=== PATIENT | female | born 1975 | race Caucasian/White ===

== ENCOUNTER → 2018-12-14 | Outpatient (CLI) | payer BC ==
--- NOTE | 2018-12-14 16:29 | Diagnostic Imaging Report ---
INDICATION: Routine screening. COMPARISON: No prior mammograms are available for comparison. This a baseline mammogram. TECHNIQUE: 2D and 3D bilateral screening mammography was performed with CAD. FINDINGS: Scattered fibroglandular densities are identified bilaterally. Occasional benign calcifications are noted bilaterally. No mass or malignant appearing microcalcifications are seen. The axillae are unremarkable. IMPRESSION: No mammographic features suspicious for malignancy are identified. ACR BI-RADS Category 2: Benign findings. Result letter will be mailed to the patient. Note: At least 10% of breast cancer is not imaged by mammography. Dictated by: Dictated on workstation # [id number]
== END ==
LOC: RAD 10:11
PROVIDERS: ATTEND Nurse Practitioner
DX: Z12.31 Encounter for screening mammogram for malignant neoplasm of breast (principal); Z01.419 Encounter for gynecological examination (general) (routine) without abnormal findings; N92.0 Excessive and frequent menstruation with regular cycle
CPT/HCPCS: 77067

== ENCOUNTER → 2019-10-06 | Outpatient (CLI) | payer BC ==
--- NOTE | 2019-10-06 17:12 | Diagnostic Imaging Report ---
PROCEDURE: US Non-ob pelvis comp/trans. TECHNIQUE: Multiple realtime grayscale images were obtained of the pelvis in various projections transabdominally and endovaginally. Transabdominal imaging was also performed. INDICATION: Menorrhagia. COMPARISON: None Available FINDINGS: Transabdominal: The uterus and adnexa have a unremarkable transabdominal appearance. Transvaginal images were obtained for additional characterization. Transvaginal: The uterus is anteverted and measures 14.0 x 8.9 x 7.2 cm. A fibroid is visualized at the uterine fundus measuring 7.9 x 6.3 x 6.6 cm. The endometrial stripe is difficult to evaluate and measures approximately 0.5 cm in thickness. The right ovary is well visualized measuring 4.4 x 2.8 x 3.5 cm and demonstrating normal color Doppler flow. A small cyst is seen off the right ovary measuring 1.3 x 1.0 cm. The left ovary is not visualized due to overlying bowel gas. No adnexal masses are seen. No free fluid is seen in the pelvis. IMPRESSION: 1. Prominent fibroid at the uterine fundus. 2. Small cyst/follicle in the right ovary. No suspicious ovarian masses. Normal vascularity is seen in the right ovary. 3. Nonvisualization of the left ovary due to overlying bowel gas. No adnexal masses are identified. No free fluid. Dictated by: Dictated on workstation # [id number]
== END ==
LOC: RAD 13:38
PROVIDERS: ATTEND Nurse Practitioner
DX: N83.201 Unspecified ovarian cyst, right side (principal); D25.9 Leiomyoma of uterus, unspecified
CPT/HCPCS: 76830; 76856

== ENCOUNTER 2019-11-23 07:14 | Outpatient (RCR) | payer BC ==
[~2019-11-23] VITALS: Ht 168 cm; Wt 122.3 kg
[~2019-11-23 07:14] MED LIST: LEVO5TAB28 PO; MULT-141 PO
== END 2019-11-23 10:30 | disposition home or self-care (01) ==
LOC: PREOP 07:14
PROVIDERS: ATTEND Obstetrics & Gynecology
DX: Z01.818 Encounter for other preprocedural examination (principal); Z01.812 Encounter for preprocedural laboratory examination; N93.9 Abnormal uterine and vaginal bleeding, unspecified; D25.9 Leiomyoma of uterus, unspecified; N81.10 Cystocele, unspecified; Z20.828 Contact with and (suspected) exposure to other viral communicable diseases
CPT/HCPCS: 87635

== ENCOUNTER 2019-11-27 09:56 | Day surgery (SDC) | payer BC ==
[2019-11-27] VITALS (10 sets, daily range): BP systolic 126–156; BP diastolic 63–93
[~2019-11-27] VITALS: Ht 170.2 cm; Wt 122.3 kg
[2019-11-27] MEDS ORDERED: LACTATED RINGERS 1,000 ML IV SCH (10:11)
--- NOTE | 2019-11-27 10:11 | Progress Note-Pre Operative ---
Pre-Operative Progress Note H&P Reviewed The H&P was reviewed, patient examined and no changes noted. Date Seen by Provider: Nov 27, 2019 Time Seen by Provider: 10: Date H&P Reviewed: Nov 27, 2019 Time H&P Reviewed: :11 Pre-Operative Diagnosis: AUB, Fibroid uterus, Cystocele, Fam Hx Ovarian ca JON GREENE DO Nov 27, 2019 10:11
[2019-11-27] MEDS ORDERED: DOCUSATE SODIUM 100 MG (COLACE) CAP PO PRN (10:15)
[2019-11-27] MEDS ORDERED: CHLORASEPTIC LOZENGE MM PRN (10:15)
[2019-11-27] MEDS ORDERED: SIMETHICONE 80 MG (MYLICON) CHEW PO PRN (10:15)
[2019-11-27] MEDS ORDERED: ANTACID SUSP 30 ML UDC (MYLANTA) PO PRN (10:15)
[2019-11-27] MEDS ORDERED: KETOROLAC 30 MG/ML VIAL IV PRN (10:15)
[2019-11-27] MEDS ORDERED: ZOLPIDEM 5 MG (AMBIEN) TAB PO PRN (10:15)
--- NOTE | 2019-11-27 10:16 | Discharge Inst-Women's Service ---
Discharge Inst-Women's Serv Depart Medication/Instructions New, Converted or Re-Newed RX: RX on Chart Final Diagnosis POD 1 RATLH BSO w/ Ant Repair Problems Reviewed?: Yes Consults/Follow Up Additional Follow Up: Yes Orders/Referrals Dr. De Jesus in 7-10 days and in 8 weeks Activity Activity: Activity as Tolerated Driving Instructions: No Driving for 1 Week NO SMOKING: NO SMOKING Nothing Inside Vagina: No Douching, No [place], No Tampons Diet Discharge Diet: No Restrictions Symptoms to Report to : Bleeding Excessive, Pain Increased, Fever Over 101 Degrees F, Vaginal Bleeding Increase, Questions/Concerns For Any Problems or Questions: Contact Your Physician Skin/Wound Care Infection Signs and Symptoms: Increased Redness, Foul Odor of Wound, Increased Drainage, Skin Itchy or Has a Rash, Increased Swelling, Temperature Above 101 F Operative Area Clean and Dry: Keep Incision Clean/Dry Stitches/Jung/Dermabond: Dermabond, Care of Stitches Bathing Instructions: JON Schultz DO Nov 27, 2019 10:16
[2019-11-27] MEDS ORDERED: SIME80TA16 PO (10:19)
[2019-11-27] MEDS ORDERED: IBUP-844 PO (10:19)
[2019-11-27] MEDS ORDERED: HYDR-34 PO (10:19)
[2019-11-27] MEDS ORDERED: DCS100C PO (10:19)
[2019-11-27] MEDS ORDERED: DEXAMETHASONE 10 MG/ML (DECADRON) 1 ML VIAL ONE (10:29)
[2019-11-27] MEDS ORDERED: MIDAZOLAM 2 MG/2 ML (VERSED) VIAL ONE (10:29)
[2019-11-27] MEDS ORDERED: ROCURONIUM 10 MG/ML 5 ML SYRINGE IV ONE ×2 (10:29→13:49)
[2019-11-27] MEDS ORDERED: LIDOCAINE PF 2% 5 ML (XYLOCAINE) VIAL ONE (10:29)
[2019-11-27] MEDS ORDERED: proPOfol 200 MG/20 ML (DIPRIVAN) VIAL IV ONE (10:29)
[2019-11-27] MEDS ORDERED: fentaNYL INJECTION 100 MCG/2 ML AMP ONE (10:29)
[2019-11-27] MEDS ORDERED: ONDANSETRON 4 MG/2 ML (SDV) Z0FRAN ONE ×2 (10:32→14:23)
[2019-11-27] MEDS ORDERED: SEVOFLURANE (ULTANE) 15 ML INHAL SOLN ONE ×9 (10:32→13:31)
[2019-11-27] MEDS ORDERED: metroNIDAZOLE 500MG/100ML IVPB 100 ML ONE (10:41)
[2019-11-27] MEDS ORDERED: ceFAZolin 2 GM IV Premixed 50 ML ONE (10:41)
[2019-11-27] MEDS ORDERED: LACTATED RINGERS 1,000 ML IV ONE (10:50)
[2019-11-27] MEDS ORDERED: ceFAZolin 2 GM IV Premixed 50 ML IV ONE (11:00)
[2019-11-27] MEDS ORDERED: metroNIDAZOLE 500MG/100ML IVPB 100 ML IV ONE (11:00)
--- OUTSIDE RECORDS SUMMARY | 2019-11-27 11:49 | XMS REPORT | Continuity of Care Document ---
Demographics Preferred Language Unknown Marital Status Unknown Yazidi Affiliation Unknown Race Unknown Ethnic Group Unknown Author Organization Unknown Address Unknown Phone Unavailable Allergies Active Description Code Type Severity Reaction Onset Reported/Identified Relationship to Patient Clinical Status Yes egg [id number] Drug Allergy Unknown N/A 11/20/2019 Yes Influenza Virus Vaccines [id number] Drug Allergy Unknown N/A 11/20/2019 Medications There is no data. 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 12/16/2018 [employer] [employer] MANAGER Ot N92.0 EXCESSIVE AND FREQUENT MENSTRUATION WITH 12/16/2018 [employer] [facility] MANAGER Ot Z01.4 19 ENCNTR FOR TICKET SELLER EXAM (GENERAL) (ROUTINE) 12/16/2018 QUICK CUONG W [employer] C[employer] MANAGER Ot Z12.3 1 ENCNTR SCREEN MAMMOGRAM FOR MALIGNANT NE 12/29/2018 KATY [facility]ONG [facility] [employer] MANAGER Ot N92.0 EXCESSIVE AND FREQUENT MENSTRUATION WITH 12/29/2018 [facility] [employer] MANAGER Ot Z01.4 19 ENCNTR FOR TICKET SELLER EXAM (GENERAL) (ROUTINE) 12/29/2018 KATY CUONG W [employer]IST[employer] C[employer] MANAGER Ot Z12.3 1 ENCNTR SCREEN MAMMOGRAM FOR MALIGNANT NE 05/22/2019 [employer] [employer] MANAGER Ot N92.0 EXCESSIVE AND FREQUENT MENSTRUATION WITH 05/22/2019 [employer] [employer] MANAGER Ot Z01.4 19 ENCNTR FOR TICKET SELLER EXAM (GENERAL) (ROUTINE) 05/22/2019 [employer] [employer] MANAGER Ot Z12.3 1 ENCNTR SCREEN MAMMOGRAM FOR MALIGNANT NE 10/10/2019 [employer] [facility] MANA[employer] Ot D25.9 LEIOMYOMA OF UTERUS, UNSPECIFIED 10/10/2019 [employer] [facility] [employer] MANAGER Ot N83.2 01 UNSPECIFIED OVARIAN CYST, RIGHT SIDE 11/02/2019 W Z00.01 Enc ounter for general adult medical examination with abnormal findings Michelle Arzola Procedures There is no data. Results Test Result Range Complete blood count (CBC) with automate d white blood cell (WBC) differential - 11/27/19 10:36 Blood leukocytes automated count (number/volume) 7.5 10*3/uL 4.3-11.0 Blood erythrocytes automated count (number/volume) 4.57 10*6/uL 4.35-5.85 Venous blood hemoglobin measurement (mass/volume) 13.4 g/dL 11.5-16.0 Blood hematocrit (volume fraction) 39 % 35-52 Automated erythrocyte mean corpuscular volume 86 [ foz_us] 80-99 Automated erythrocyte mean corpuscular h emoglobin (mass per erythrocyte) 29 pg 25-34 Automated erythrocyte mean corpuscular h emoglobin concentration measurement (mass/volume) 34 g/dL 32-36 Automated erythrocyte distribution width ratio 13. 6 % 10.0- 14.5 Automated blood platelet count (count/volume) 117 10*3/uL 130-400 Automated blood platelet mean volume measurement 10.4 [foz_us] 7.4-10.4 Automated blood neutrophils/100 leukocytes 70 % 42-75 Automated blood lymphocytes/100 leukocytes 23 % 12-44 Blood monocytes/100 leukocytes 6 % 0-12 Automated blood eosinophils/100 leukocytes 1 % 0-10 Automated blood basophils/100 leukocytes 0 % 0-10 Blood neutrophils automated count (number/volume) 5.2 10*3 1.8-7.8 Blood lymphocytes automated count (number/volume) 1.7 10*3 1.0-4.0 Blood monocytes automated count (number/volume) 0. 5 10*3 0.0-1.0 Automated eosinophil count 0.1 10*3/uL 0 .0-0.3 Automated blood basophil count (count/volume) 0.0 10*3/uL 0.0-0.1 Serum or plasma choriogonadotropin (preg patrick test) detection - 11/27/19 10:36 Serum or plasma choriogonadotropin ( test) de tection NEGATIVE NEGATIVE Comprehensive metabolic panel - 11/27/19 11:08 Serum or plasma sodium measurement (moles/volume) 139 mmol/L 135-145 Serum or plasma potassium measurement (moles/volume) 3.8 mmol/L 3.6-5.0 Serum or plasma chloride measurement (moles/volume) 110 mmol/L 98-107 Serum or plasma calcium measurement (mass/volume) 8.3 mg/dL 8.5-10.1 Serum or plasma albumin measurement (mass/volume) 3.6 g/dL 3.2-4.5 CALCIUM CORRECTED 8.6 mg/dL 8.5-10.1 Encounters ACCT No. Visit Date/Time Discharge Status Pt. Type Provider Facility Loc./Unit Complaint [id number] 08/13/2018 09:42:00 Document Registration [id number] 10/16/2019 14:19:42 10/16/2019 23:59:5 9 CLS Outpatient [id number] 11/23/2019 07:14:00 020 10:30:00 DIS Outpatient JON GREENE DO [facility] PREOP ROBOTIC HYSTERECTOMY;P OSSIBLE REPAIRS [id number] 10/06/2019 13:38:00 020 23:59:59 CLS Outpatient CUONG BURNS [facility] RAD DUB [id number] 12/14/2018 10:11:00 019 23:59:59 CLS Outpatient CUONG BURNS [facility] RAD SCREENING [id number] 07/07/2013 15:38:00 014 23:59:59 CLS Outpatient [id number] 11/27/2019 11:15:00 P EN Preadmit JON GREENE DO [facility] SDC ABNORMAL UTERINE BLEEDING;CY STOCELE [id number] 11/27/2019 10:48:00 Document Registration
[2019-11-27] MEDS: LACTATED RINGERS 1,000 ML IV PRN ×3 (12:00→14:18)
[2019-11-27] MEDS ORDERED: GLYCOPYRROLATE 0.2 MG/ML (ROBINUL) 2 ML VIAL ONE (13:32)
[2019-11-27] MEDS ORDERED: NEOSTIGMINE 3 MG/3 ML VIAL ONE (13:32)
[2019-11-27] MEDS ORDERED: INDIGO CARMINE 8 MG/ML 5 ML AMP ONE (13:32)
[2019-11-27] MEDS ORDERED: HYDROmorphone 2 MG/ML VIAL (DILAUDID) ONE (14:03)
[2019-11-27] MEDS ORDERED: morphine INJ 10 MG/ML 1ML (SYR OR VIAL) IVP ONE (14:15)
[2019-11-27] MEDS ORDERED: HYDROmorphone 2 MG/ML VIAL (DILAUDID) IV ONE (14:15)
[2019-11-27] MEDS ORDERED: BUPIVACAINE 0.25% 30 ML (SENSORCAINE) VIAL ONE (14:25)
[2019-11-27] MEDS: ONDANSETRON 4 MG/2 ML (SDV) Z0FRAN IVP PRN ×2 (14:26→15:30)
[2019-11-27] MEDS: ONDANSETRON 4 MG/2 ML (SDV) Z0FRAN IV PRN ×2 (14:26→17:58)
[2019-11-27] MEDS ORDERED: KETOROLAC 30 MG/ML VIAL ONE (14:52)
--- NOTE | 2019-11-27 15:10 | NUR ---
LON NAYLOR admitted to room 3304-1 ACC BY DIXON OLIVEIRA SUPERVISOR PUBLIC MESSAGE SERVICE AFTER A ROBOTIC ASSISTED TOTAL HYSTERECTOMY AND BILATERAL SALPINGO-OOPHORECTOMY TODAY BY DR. GREENE. LON NAYLOR introduced to surroundings, call light, bed controls, phone, TV, temperature control, lights, meal times, smoking policy, visitor policy, side rail policy, bathrooms and showers. Patient Rights given to patient in the handbook.
--- NOTE | 2019-11-27 16:30 | NUR ---
VSS. DOZING AT INTERVALS. CONTINUES TO BE DROWSY. SPOUSE AT BEDSIDE.
[2019-11-27] MEDS ORDERED: HYDROcodone/APAP 7.5 MG/325 MG (LORTAB, LORCET PLUS) TABLET PO ONE (17:20)
[2019-11-27] MEDS: HYDROcodone/APAP 7.5 MG/325 MG (LORTAB, LORCET PLUS) TABLET PO PRN ×2 (17:33→23:49)
--- NOTE | 2019-11-27 17:33 | NUR ---
LORTAB 7.5/325 MG 2 TABS P.O. FOR C/O ABD PAIN.
--- NOTE | 2019-11-27 17:58 | NUR ---
ZOFRAN 4 MG IVP FOR C/O NAUSEA.
--- NOTE | 2019-11-27 18:15 | NUR ---
PT NOT WANTING DIAZ OUT R/T NAUSEA. STATES WHEN SHE MOVES SHE FEELS NAUSEATED. GOOD URINE OUTPUT. SPOUSE PREPARING TO LEAVE FOR THE NIGHT.
[2019-11-27] MEDS ORDERED: PROMETHAZINE INJ 25 MG/ML (PHENERGAN) AMP IVP PRN (18:45)
--- NOTE | 2019-11-27 18:48 | NUR ---
NOTIFIED DR. GREENE OF PT NOT WANTING DIAZ OUT AND C/O NAUSEA. ORDER RECEIVED FOR PHENERGAN AND TO KEEP DIAZ UNTIL PT WANTS IT OUT. PT REFUSING PHENERGAN AT THIS TIME. STATES SHE "JUST WANTS TO SLEEP".
--- NOTE | 2019-11-27 19:30 | NUR ---
PT AWAKE WHEN ENTERED ROOM. STATES SHE FEELS A THOUSAND TIMES BETTER AND READY TO HAVE DIAZ OUT WHEN ABLE. PASSED ON TO NEXT RN.
--- NOTE | 2019-11-27 23:33 | OPERATIVE REPORT ---
DATE OF SERVICE: PREOPERATIVE DIAGNOSES: 1. A 44-year-old female with abnormal uterine bleeding. 2. Fibroid uterus. 3. Pelvic pressure. 4. Cystocele. 5. Dysmenorrhea. POSTOPERATIVE DIAGNOSES: 1. A 44-year-old female with abnormal uterine bleeding. 2. Fibroid uterus. 3. Pelvic pressure. 4. Cystocele. 5. Dysmenorrhea. 6. Bilateral ovarian endometriomas and extensive pelvic adhesions. PROCEDURES: 1. Robotic-assisted total laparoscopic hysterectomy with bilateral salpingo-oophorectomy, weight of 440 grams. 2. Extensive lysis of adhesions greater than 45 minutes. SURGEON: Dev De Jesus DO DRUG SAFETY COORDINATOR: Danna Cabrera DNP, who was necessary for manipulation and retraction throughout the procedure. ANESTHESIA: General endotracheal. ESTIMATED BLOOD LOSS: 200 mL. URINE OUTPUT: 600 mL of indigo carmine stained at the end of the procedure. FLUIDS: 2600 mL of lactated Ringer's solution. FINDINGS: Grossly normal appearing external female genitalia, significantly enlarged uterus with intramural fibroid increasing the uterine size. Grossly normal appearing bilateral fallopian tubes. Extensive adhesions of bilateral ovaries and to the posterior cul-de-sac obliterating the posterior cul-de-sac with adhesions and endometriomas. SPECIMEN SENT: Uterus, bilateral fallopian tubes and ovaries. INDICATIONS FOR PROCEDURE: This 44-year-old female is a patient who is consulted to me from Dayan Kearney, her nurse practitioner, after annual examination revealed the findings and her complaints above including heavy periods, fibroid uterus, some pain with intercourse and some pain with periods. She had been previously counseled by her nurse practitioner; however, at this point, the pain and pressure was getting to be too intense and extreme. She also had a family history of ovarian cancer, which made the patient nervous and she was opting to go ahead and have her ovaries removed at the same time. I discussed with the patient alternatives to this; however, she wished to move forward with more definitive measures. Risks of procedure were discussed with the patient in detail including risk of bleeding, infection, damaging surrounding structures including, but not limited to bowel, bladder, ureter, kidneys, possible need for reoperation, postoperative complications that may occur, possible need for reoperation, risk from anesthesia and even . After everything was discussed with the patient in detail and all of her questions were answered, consent was obtained in the preoperative area and the patient was taken to the operating room. OPERATIVE REPORT IN DETAIL: Once in the operating room, anesthesia was found to be adequate, placed in dorsal lithotomy position, prepped and draped in normal sterile fashion. Timeout was performed and a Howard catheter was placed using sterile technique. A weighted speculum inserted to the patient's vagina. Right angle retractor was used to visualize the cervix. It was grasped at 12 o'clock position using a long Allis clamp and 0 Vicryl suture was then placed anterior lip of the cervix for retraction and the Allis clamp was removed. I then gently sound the uterine cavity, depth was found to be 8 cm. I selected an 8 cm Fina uterine manipulator tip and a 4 cm colpotomy ring. The manipulator tip was advanced into the uterus where the balloon was deployed and the colpotomy ring was advanced around the vaginal fornix. I then removed all other instruments from the patient's vagina. I performed a change of gloves and took my attention to the abdomen where infraumbilically, I infiltrated this area using 0.25% Marcaine and make an 8 mm incision with a knife and directed Veress needle through the incision; however, I am able to confirm intraperitoneal placement Therefore, I end up going subcostally approximately two fingerbreadths down the midclavicular line with the Veress needle where I am able to confirm intraperitoneal placement using a saline drop test. I then proceeded with insufflation using CO2 gas and pressure of 6 mmHg was noted. I proceeded to max pressure of 15 mmHg, at which point I removed the Veress needle and through my infraumbilical incision, I introduced an 8 mm da Sharee camera trocar. I am able to confirm intraperitoneal placement using the da Sharee laparoscope. I then had to have a brief scan of the upper abdominal anatomy appears to be normal and the puncture wound from the veress is noted to be hemostatic and no evidence of damage upon that site. I then took my attention to the pelvis where I had the patient placed in steep Trendelenburg, I am able to visualize all my pelvic anatomy as defined in my findings above. I then placed two lateral trocars using both 8 mm trocars approximately 8 cm lateral to my infraumbilical trocar. The skin is infiltrated using 0.25% Marcaine. An 8 mm incisions were made with a knife and the trocars were placed under direct visualization of laparoscope. Once the trocars were in place, I bring in the da Sharee robot and docked in appropriate fashion. Using the bipolar fenestrated graspers in my left hand and monopolar roslyn in the right hand, I performed the following dissection bilaterally. The posterior cul-de-sac while anteverting the uterus is completely obliterated by the descending and sigmoid colon and adhesions to the ovaries. I carefully take these down, some of the adhesions were filmy and some of them are dense. I do encounter several endometriomas and opened up in the process of my dissection. This takes approximately 45 minutes to an hour in order to visualize the posterior vaginal fornix and the backside of the uterus. Once I am able to do this, I started at the infundibulopelvic ligament with my dissection, bipolar cauterized and transected this using the instruments. I then bipolar cauterized and transected the round ligament using the same instruments. I then am able to identify the broad ligament, which I then bipolar cauterized and transected using the monopolar roslyn down to the level of the lower uterine segment, at which point I the anterior and posterior leaflets of the broad ligament, anterior leaflet dissection was taken down the anterior vaginal fornix, posterior leaflet was taken around to the posterior vaginal fornix. This allows me to skeletonize the uterine vessels laterally, which I then bipolar cauterized and transected using the monopolar roslyn. I then created a colpotomy at 12 o'clock position and circumferentially took this colpotomy around the vaginal fornix and the Fina uterine manipulator cuff using the monopolar roslyn, after which the entire specimen was able to be removed through the vagina. I then closed the lateral vaginal apices of the vaginal cuff using 2-0 Vicryl suture in a [id number] fashion colposuspending the uterosacral ligaments. The remainder of the vaginal cuff was closed using 2-0 V-Loc in a running fashion, after which there was no active bleeding noted from any of my dissection planes. I undocked the da Sharee robot and proceeded with remainder of the case laparoscopically. I copiously irrigated the pelvis using normal saline. Once again, there was no active bleeding noted from any of my dissection planes. I placed FloSeal hemostatic agent over all my planes of dissection and the patient taken out of steep Trendelenburg where I removed the lateral trocars under direct visualization and laparoscope. The infraumbilical trocar was left in place to release insufflation and to introduce 10 mL of 0.25% Marcaine into the peritoneal cavity for postoperative pain management. I then removed this trocar as well. The skin was reapproximated using 4-0 Monocryl in interrupted subcuticular stitches. Dermabond was applied to the incisions and Band-Aids were placed over the incisions as well. Howard catheter was left in place. A brief pelvic and vaginal exam reveals excellent reduction of the cystocele that was there prior to the procedure and documented in my documentation. Therefore, I did not proceed with an anterior colporrhaphy as it is not necessary at this time. Two grams of Ancef and 500 mg of Flagyl were given preoperatively for infection prophylaxis. Job ID: [id number] DocumentID: [id number] Dictated Date: 11/27/2019 14:46:12 Mud Grinder Date: 11/27/2019 23:33:26 Dictated By: DO LOR GARCÍA
[2019-11-28] VITALS: BP 147/73
[2019-11-28] MEDS ORDERED: IBUPROFEN 600 MG (MOTRIN) TAB PO SCH (03:00)
[2019-11-28 04:04] VITALS: BP 124/64
[2019-11-28 08:30] VITALS: BP 173/79
[2019-11-28] MEDS: HYDROcodone/APAP 7.5 MG/325 MG (LORTAB, LORCET PLUS) TABLET PO PRN (08:46)
[2019-11-28 10:30] VITALS: BP 173/79
== END 2019-11-28 10:45 | disposition home or self-care (01) ==
LOC: SDC 09:56 → WS 16:17 → SDC 11-28 10:45
PROVIDERS: ATTEND Obstetrics & Gynecology
DX: D25.1 Intramural leiomyoma of uterus (principal); N81.10 Cystocele, unspecified; N94.6 Dysmenorrhea, unspecified; N80.0 Endometriosis of uterus; N93.9 Abnormal uterine and vaginal bleeding, unspecified; N72 Inflammatory disease of cervix uteri; N83.8 Other noninflammatory disorders of ovary, fallopian tube and broad ligament; N73.6 Female pelvic peritoneal adhesions (postinfective); E66.01 Morbid (severe) obesity due to excess calories; Z68.41 Body mass index [BMI] 40.0-44.9, adult; Z88.7 Allergy status to serum and vaccine; Z91.012 Allergy to eggs; Z83.3 Family history of diabetes mellitus; Z82.49 Family history of ischemic heart disease and other diseases of the circulatory system
CPT/HCPCS: 36415; 84703; 88307; 94664

== ENCOUNTER 2019-11-27 09:59 | Outpatient (CLI) | payer BC ==
[2019-11-27] MEDS ORDERED: SIME80TA16 PO (10:19)
[2019-11-27] MEDS ORDERED: IBUP-844 PO (10:19)
[2019-11-27] MEDS ORDERED: DCS100C PO (10:19)
[2019-11-27] MEDS ORDERED: HYDR-34 PO (10:19)
[2019-11-27 10:47] LABS: BASOPHILS % (AUTO) 0 % (0-10); EOSINOPHILS # (AUTO) 0.1 10^3/uL (0.0-0.3); EOSINOPHILS % (AUTO) 1 % (0-10); HEMATOCRIT 39 % (35-52); HEMOGLOBIN 13.4 G/DL (11.5-16.0); LYMPHOCYTES # (AUTO) 1.7 X 10^3 (1.0-4.0); LYMPHOCYTES % (AUTO) 23 % (12-44); MEAN CORPUSCULAR HEMOGLOBIN 29 PG (25-34); MEAN CORPUSCULAR HGB CONC 34 G/DL (32-36); MEAN CORPUSCULAR VOLUME 86 FL (80-99); MEAN PLATELET VOLUME 10.4 FL (7.4-10.4); MONOCYTES # (AUTO) 0.5 X 10^3 (0.0-1.0); MONOCYTES % (AUTO) 6 % (0-12); NEUTROPHILS # (AUTO) 5.2 X 10^3 (1.8-7.8); NEUTROPHILS % (AUTO) 70 % (42-75); PLATELET COUNT 117 10^3/uL (130-400); RED CELL DISTRIBUTION WIDTH 13.6 % (10.0-14.5); WHITE BLOOD COUNT 7.5 10^3/uL (4.3-11.0)
[2019-11-27] MEDS ORDERED: BUPIVACAINE 0.25% 30 ML (SENSORCAINE) VIAL ONE (10:51)
[2019-11-27] MEDS ORDERED: VASOPRESSIN INJECTION 20 UNIT/ML VIAL ONE (10:51)
[2019-11-27] MEDS ORDERED: ESTRADIOL VAGINAL CREAM 42.5 GM (ESTRACE) VG ONE (10:53)
[2019-11-27 11:28] LABS: ALBUMIN 3.6 GM/DL (3.2-4.5); CHLORIDE 110 MMOL/L (98-107); POTASSIUM 3.8 MMOL/L (3.6-5.0); SODIUM 139 MMOL/L (135-145)
[2019-11-27 11:29] LABS: CALCIUM 8.3 MG/DL (8.5-10.1)
[2019-11-27 11:30] LABS: TOTAL PROTEIN 6.4 GM/DL (6.4-8.2); TRIGLYCERIDES 134 MG/DL (<150); VLDL CHOLESTEROL 27 MG/DL (5-40)
[2019-11-27 11:31] LABS: CARBON DIOXIDE 16 MMOL/L (21-32); GLUCOSE 132 MG/DL (70-105)
[2019-11-27 11:32] LABS: BILIRUBIN,TOTAL 0.5 MG/DL (0.1-1.0)
[2019-11-27 11:34] LABS: ALKALINE PHOSPHATASE 77 U/L (40-136); CREATININE SERUM 0.64 MG/DL (0.60-1.30); GFR ESTIMATED > 60
[2019-11-27 11:35] LABS: BUN/CREATININE RATIO 9; CHOLESTEROL 142 MG/DL (< 200)
[2019-11-27 11:36] LABS: HDL CHOLESTEROL 29 MG/DL (40-60)
[2019-11-27 11:37] LABS: ALANINE AMINOTRANSFERASE 27 U/L (0-55)
[2019-11-27] MEDS ORDERED: LACTATED RINGERS 1,000 ML IV ONE (14:13)
--- NOTE | 2019-11-28 06:39 | Anesthesia-General Post-Op ---
General Patient Condition Mental Status/LOC: Same as Preop Cardiovascular: Satisfactory Nausea/Vomiting: Absent Respiratory: Satisfactory Pain: Controlled Complications: Absent Post Op Complications Complications None Follow Up Care/Instructions Patient Instructions None needed. Anesthesia/Patient Condition Patient Condition Patient is doing well, no complaints, stable vital signs, no apparent adverse anesthesia problems. No complications reported per nursing. D/C home per [facility] Criteria: Yes BRANDO INFANTE CRNA Nov 28, 2019 06:39
--- NOTE | 2019-11-28 10:45 | NUR ---
LON NAYLOR demonstrates understanding of discharge instructions and accurately returns instructions upon questioning. Copy of Post-Discharge Instructions and Medication Discharge Instructions given to . LON NAYLOR is able to manage continuing needs after discharge. Patients belongings returned to patient. Skin dry and intact; no breakdown noted. Patient discharged from [facility] on 11/28/19 at 1045 . LON NAYLOR left floor via wheel chair, accompanied by and women services staff.
== END 2019-11-27 12:00 | disposition home or self-care (01) ==
LOC: SDC 09:59
PROVIDERS: ATTEND Family Medicine
DX: Z00.00 Encounter for general adult medical examination without abnormal findings (principal); D64.9 Anemia, unspecified; N92.1 Excessive and frequent menstruation with irregular cycle
CPT/HCPCS: 36415; 80053; 80061; 84443; 85025; 87081

== ENCOUNTER → 2019-12-18 | Outpatient (CLI) | payer BC ==
[~2019-12-18] MED LIST changes: +DCS100C PO; +HYDR-34 PO; +IBUP-844 PO; +SIME80TA16 PO
--- NOTE | 2019-12-18 11:48 | Diagnostic Imaging Report ---
INDICATION: Routine screening. COMPARISON: 12/14/2018. TECHNIQUE: 2D and 3D bilateral screening mammography was performed with CAD. FINDINGS: Scattered fibroglandular densities are identified bilaterally. No mass or malignant appearing microcalcifications are seen. Occasional benign calcifications are noted. The axillae are unremarkable. IMPRESSION: No mammographic features suspicious for malignancy are identified. ACR BI-RADS Category 2: Benign findings. Result letter will be mailed to the patient. Note: At least 10% of breast cancer is not imaged by mammography. Dictated by: Dictated on workstation # [id number]
== END ==
LOC: RAD 09:11
PROVIDERS: ATTEND Family Medicine
DX: Z12.31 Encounter for screening mammogram for malignant neoplasm of breast (principal)
CPT/HCPCS: 77063; 77067

== ENCOUNTER → 2020-07-29 | Outpatient (CLI) | payer BC ==
--- NOTE | 2020-07-29 13:32 | Diagnostic Imaging Report ---
Indication: Left breast pain. Correlation is made with prior mammogram from 12/18/2019 and 12/14/2018. Unilateral left 2-D and 3-D diagnostic mammography was performed with CAD. Scattered fibroglandular densities in left breast are noted. No mass or malignant appearing microcalcifications are seen. Left axilla is unremarkable. IMPRESSION: BI-RADS 0 No mammographic features suspicious for malignancy are identified. Even so, directed sonographic interrogation of the area of pain in the upper outer left breast is recommended and will be performed today. ACR BI-RADS Category 0: Incomplete. (Needs additional imaging evaluation). Result letter will be mailed to the patient. Note: At least 10% of breast cancer is not imaged by mammography. Dictated by: Dictated on workstation # [id number]
--- NOTE | 2020-07-29 14:07 | Diagnostic Imaging Report ---
INDICATION: Left breast pain. COMPARISON: Correlation is made with the diagnostic mammogram from earlier this same day. FINDINGS: Sonographic interrogation of the area of pain in the lateral left breast was performed. There is a lymph node at the 1 o'clock location in the left axilla measuring approximately 13 mm x 10 mm x 19 mm. No sonographic abnormality at the area of pain in the lateral left breast is seen. No solid or cystic masses are seen. IMPRESSION: No suspicious sonographic abnormality is detected. ACR BI-RADS Category 2: Benign findings. Dictated by: Dictated on workstation # [id number]
== END ==
LOC: RAD 12:43
PROVIDERS: ATTEND Nurse Practitioner Family
DX: N64.4 Mastodynia (principal)
CPT/HCPCS: 76642; 77065; G0279

== ENCOUNTER → 2021-01-03 | Outpatient (CLI) | payer BC ==
--- NOTE | 2021-01-03 13:46 | Diagnostic Imaging Report ---
INDICATION: Routine screening. COMPARISON is made with prior mammograms from 12/18/2019 and 12/14/2018. 2-D and 3-D bilateral screening mammography was performed with CAD. Scattered fibroglandular densities are identified bilaterally. The parenchymal pattern is stable. No mass or malignant-appearing microcalcifications are seen. There are benign calcifications noted. Axillae are unremarkable. IMPRESSION: BI-RADS Category 2 No mammographic features suspicious for malignancy are identified. ACR BI-RADS Category 2: Benign findings. Result letter will be mailed to the patient. Note: At least 10% of breast cancer is not imaged by mammography. Dictated by: Dictated on workstation # [id number]
== END ==
LOC: RAD 10:15
PROVIDERS: ATTEND Nurse Practitioner Family
DX: Z12.31 Encounter for screening mammogram for malignant neoplasm of breast (principal)
CPT/HCPCS: 77063; 77067

== ENCOUNTER → 2022-01-05 | Outpatient (CLI) | payer BC ==
[~2022-01-05] MED LIST changes: -DCS100C PO; +DOCU-239 PO
--- NOTE | 2022-01-06 08:55 | Diagnostic Imaging Report ---
Indication: Routine screening. Comparison is made with prior mammogram 01/03/2021 and 12/18/2019. 2-D and 3-D bilateral screening mammography was performed with CAD. CAD is utilized. The current study was also evaluated with a Computer Aided Detection (CAD) system. Scattered fibroglandular densities are identified bilaterally. The parenchymal pattern is stable. No mass or malignant-appearing microcalcifications are seen. Occasional benign calcifications are noted. Axillae are unremarkable. IMPRESSION: BI-RADS Category 2 No mammographic features suspicious for malignancy are identified. ACR BI-RADS Category 2: Benign findings. Result letter will be mailed to the patient. Note: At least 10% of breast cancer is not imaged by mammography. Dictated by: Dictated on workstation # [id number]
== END ==
LOC: RAD 15:12
PROVIDERS: ATTEND Nurse Practitioner Family
DX: Z12.31 Encounter for screening mammogram for malignant neoplasm of breast (principal)
CPT/HCPCS: 77063; 77067

== ENCOUNTER → 2023-02-15 | Outpatient (CLI) | payer BC ==
--- NOTE | 2023-02-16 11:35 | Diagnostic Imaging Report ---
INDICATION: Bilateral digital 2-D and 3-D screening with CAD. COMPARISON: 12/2021, 12/2020, 07/2020 and 12/2019. FINDINGS: Density 2. No breast mass, spiculated lesion, architectural distortion, suspicious calcifications or changes to suggest malignancy. IMPRESSION: ACR BI-RADS Category 1: Negative. Result letter will be mailed to the patient. Note: At least 10% of breast cancer is not imaged by mammography. BI-RADS Category 1 Dictated by: Dictated on workstation # [id number]
== END ==
LOC: RAD 15:14
PROVIDERS: ATTEND Nurse Practitioner Family
DX: Z12.31 Encounter for screening mammogram for malignant neoplasm of breast (principal)
CPT/HCPCS: 77063; 77067